=== PATIENT | male | born 1970 | race Caucasian/White ===

== ENCOUNTER 2024-05-05 12:27 | Emergency (ER) | payer SELFPAY ==
[~2024-05-05] VITALS: Ht 182.9 cm; Wt 73.0 kg
[2024-05-05 12:29] VITALS: O2SAT 97
[2024-05-05 14:33] LABS: CLARITY URINE CLEAR (CLEAR); COLOR URINE YELLOW (YELLOW); GLUCOSE URINE NEGATIVE (NEGATIVE); KETONES URINE TRACE (NEGATIVE); LEUKOCYTE ESTERASE URINE NEGATIVE (NEGATIVE); NITRITE URINE NEGATIVE (NEGATIVE); OCCULT BLOOD URINE NEGATIVE (NEGATIVE); PH URINE 6.5 (4.5-8.0); PROTEIN URINE NEGATIVE (NEGATIVE); SPECIFIC GRAVITY URINE 1.024 (1.005-1.030)
[2024-05-05] MEDS ORDERED: ACET-2708 MT (14:43)
[2024-05-05 14:56] LABS: *AMPHETAMINES SCREEN URINE NEGATIVE (NEGATIVE); *BENZODIAZEPINES SCREEN URINE NEGATIVE (NEGATIVE)
[2024-05-05 14:57] LABS: *BARBITURATES SCREEN URINE NEGATIVE (NEGATIVE); *COCAINE SCREEN URINE NEGATIVE (NEGATIVE); CANNABINOID URINE SCREEN PRESUMPTIVE POSITIVE (NEGATIVE); ECSTASY MDMA SCREEN URINE NEGATIVE (NEGATIVE); METHADONE URINE SCREEN NEGATIVE (NEGATIVE); OPIATES URINE SCREEN NEGATIVE (NEGATIVE); PHENCYCLIDINE URINE SCREEN NEGATIVE (NEGATIVE)
[2024-05-05 16:04] VITALS: BP 112/57; PULSE 73; RESP 18; TEMP 36.78072; O2SAT 97
== END 2024-05-05 16:06 | disposition home or self-care (01) ==
LOC: ER 12:27
DX: R42 Dizziness and giddiness (principal); F17.210 Nicotine dependence, cigarettes, uncomplicated; Z59.00 Homelessness unspecified
CPT/HCPCS: 80305; 81003; 99283